=== PATIENT | female | born 1990 | race African-American/Black ===

== ENCOUNTER 2024-08-06 21:31 | Emergency (ER) | payer SELFPAY ==
[2024-08-06] MEDS ORDERED: Ketorolac Tromethamine 30 MG (1 mL) VIAL ONE (21:43)
== END 2024-08-06 22:35 | disposition home or self-care (01) ==
LOC: ERS 21:31
DX: M62.838 Other muscle spasm (principal); M79.641 Pain in right hand; I10 Essential (primary) hypertension; F17.210 Nicotine dependence, cigarettes, uncomplicated; W22.8XXA Striking against or struck by other objects, initial encounter
CPT/HCPCS: 96372; 99283; J1885